=== PATIENT | female | born 1990 | race African-American/Black ===

== ENCOUNTER 2019-12-01 14:04 | Inpatient (IN) | payer MEDICARE ==
[~2019-12-01] VITALS: Ht 149.9 cm; Wt 111.1 kg
--- NOTE | ~2019-12-01 | OP ---
PATIENT NAME: MAYLIN TALBOT MEDICAL RECORD: [id number] :89 LOCATION:[id number] ADMISSION DATE:12/24/19 SURGEON: MARY PETERSON DO DATE OF OPERATION: 12/25/2019 PREOPERATIVE DIAGNOSIS: Term nonreassuring heart tracing. POSTOPERATIVE DIAGNOSIS: Term nonreassuring heart tracing. PRIMARY SURGEON: Mary Peterson DO ANESTHESIA: Spinal. PROCEDURE: Primary low transverse section via Pfannenstiel incision. FINDINGS: Female , weight 5 pounds 11 ounces, Apgars 7 and 9, delivered at 3:26 a.m. Nuchal cord times 1, meconium stained amniotic fluid. Normal appearing uterus, bilateral fallopian tubes, bilateral ovaries. Small uterine fibroid noted. SPECIMENS: Placenta and cord. ESTIMATED BLOOD LOSS: 800 mL. IV FLUIDS: 2700 cc. URINE OUTPUT: 200 cc clear urine. COMPLICATIONS: None. CONDITION: Stable. PROCEDURE IN DETAIL: The risks, benefits, alternatives and indications of the procedure were discussed with the patient who voiced understanding of the procedure and signed the consent. She was taken to the OR where spinal anesthesia was administered and found to be adequate. She was placed in the dorsal supine position with a leftward tilt. She was prepped and draped in normal sterile fashion. A Pfannenstiel skin incision was made with a scalpel and carried down to the underlying layer of the fascia with the Bovie. The fascia was incised at the midline and extended laterally. The inferior aspect of the fascial incision was grasped with Chago clamps and the rectus muscle was dissected off sharply. Attention was then turned to the superior aspect of the fascial incision. The rectus muscle was dissected off in a similar fashion. The rectus muscle was in the midline down to the level of the peritoneum. The peritoneum was identified and noted to be free of adherent bowel and entered bluntly. The peritoneum was further with gentle traction. The bladder blade was inserted. The uterus was incised in a transverse fashion of lower uterine segment. The incision was extended with cephalad caudad traction. The 's head was brought to the incision. Nuchal cord times 1 was reduced over the head prior to delivery of the body. Fetus delivered without difficulty. Mouth and nose were suctioned. Cord was clamped and cut. The infant was handed off to awaiting pediatricians. The placenta was manually removed. The uterus was exteriorized and a moist lap was used to assure complete removal of placenta membranes. The hysterotomy was closed with 0 Vicryl in a running locked fashion with double layer closure with OPERATIVE REPORT [id number] MAYLIN TALBOT good hemostasis. The uterus, tubes and ovaries were noted to be normal aside from small subserosal fibroids. The posterior cul-de-sac was irrigated with warm sterile water. The uterus, tubes and ovaries were returned back to the abdominal cavity and a moist laparotomy sponge was used to assure complete removal of blood clots and fluid from the abdominal cavity. The hysterotomy was reinspected and noted to be hemostatic. The rectus muscle was closed with 2-0 Monocryl in a running fashion with good hemostasis. The fascial incision was closed with 0 Vicryl in a running fashion with good hemostasis. The subcutaneous fat was closed with 2-0 plain in a running fashion with good hemostasis. The skin was closed in a subcuticular fashion with 3-0 Monocryl and Dermabond covering. All needle, lap, sponge, and instrument counts were correct times 2. The patient tolerated the procedure well and she was taken to the recovery room in stable condition. TRANSINT:[id number] Voice Confirmation ID: [id number] DOCUMENT ID: [id number] MARY PETERSON DO CC: [id number] DICTATION DATE: 12/25/19421 CAPACITY ANALYST: 12/25/19 050 ADM IN [facility] [address] [place] [address]
[2019-12-24 22:07] VITALS: BP 122/70; Ht 149.9 cm; Wt 111.1 kg
[2019-12-24 23:22] LABS: HEMATOCRIT 33.2 % (36.0-48.0); HEMOGLOBIN 10.4 g/dL (12-16); MCH 26.7 pg (26.0-34.0); MCHC 31.3 g/dL (31.0-37.0); MCV 85.1 fL (80.0-100.0); MEAN PLATELET VOLUME 11.6 fL (7.4-10.4); RBC 3.9 10x6/uL (4.00-5.40); RDW 15.4 % (11.5-14.5); WBC 7.2 10x3/uL (4.8-10.8)
--- NOTE | 2019-12-25 03:50 | NUR ---
BABY 0326 PLACENT[facility] 0327
--- NOTE | 2019-12-25 04:44 | NUR ---
FUNDUS IS FIRM, MIDLINE. 1U. RAND PAD IN PLACE. MODERATE RUBRA LOCHIA NOTED ON PAD. NO CLOTS PRESENT. WILL CONTINUE TO MONITOR.
[2019-12-25 05:17] VITALS: BP 134/70
[2019-12-25 05:47] VITALS: BP 117/65
--- NOTE | 2019-12-25 05:55 | NUR ---
at bs, resting quietly, arouses to name called, respirations even and unlabored, dsg d/i, no needs voiced at this time
[2019-12-25 06:02] VITALS: BP 122/71
[2019-12-25 07:17] VITALS: BP 120/60
--- NOTE | 2019-12-25 07:17 | NUR ---
pt rec'd in bed at this time. states that pain is a 7 at this time. dressig to abdoen cdi. fundus firm and u/1 with small lochia noted. con starr rn
--- NOTE | 2019-12-25 07:35 | NUR ---
PT MEDICATED WITH MORPHINE 4 MG IV FOR PAIN OF 7. L MAC CALIX
--- NOTE | 2019-12-25 08:20 | NUR ---
LAB HERE FOR 0500 LAB WORK. Jose Ramon CALIX RN
--- NOTE | 2019-12-25 08:30 | NUR ---
PT REC'D IN BED AT THIS TIME. STATES THAT PAIN IS STILL A 7. RAZO CATH EMPTIED AT THIS TIME. WILL CONTINUE TO ASSESS PAIN LEVELS. Jose Ramon CALIX RN
[2019-12-25 08:47] LABS: BASOPHILS 0.1 % (0-2); EOSINOPHILS 0.1 % (0-7); HEMATOCRIT 33.6 % (36.0-48.0); HEMOGLOBIN 10.1 g/dL (12-16); IMMATURE GRANULOCYTES 0.3 % (0-5); LYMPHOCYTES 10.9 % (15-50); MCH 26.2 pg (26.0-34.0); MCHC 30.1 g/dL (31.0-37.0); MEAN PLATELET VOLUME 11.2 fL (7.4-10.4); MONOCYTES 3.7 % (2-11); NEUTROPHILS 84.9 % (40-80); PLATELET COUNT 200 10x3/uL (130-400); RBC 3.86 10x6/uL (4.00-5.40); RDW 15.7 % (11.5-14.5)
--- NOTE | 2019-12-25 09:46 | NUR ---
PT MEDICATED WITH 1 MG OF DILAUDID FOR PAIN. Jose Ramon CALIX RN
--- NOTE | 2019-12-25 10:51 | NUR ---
PT MEDICATED WITH SCHEDULED TORADOL AT THIS TIME. PT RESTING INTERMITTENTLY. NO DISTRESS NOTED. Jose Ramon CALIX RN
--- NOTE | 2019-12-25 12:30 | NUR ---
PT SALINE LOCKED AT THIS TIME. STATES THAT PAIN IS A 4 AT THIS TIME. PT TOLERATING LIQUIDS AT THIS TIME. Jose Ramon CALIX RN
--- NOTE | 2019-12-25 13:45 | NUR ---
1330 RAZO CATH REMOVED AT THIS TIME AND PT UP TO BATHROOM. PT UP TO WALK IN THE HALLS AT THIS TIME. Jose Ramon CALIX RN
[2019-12-25 15:44] VITALS: BP 111/55
--- NOTE | 2019-12-25 15:49 | NUR ---
PT REC'D IN BED AT THIS TIME. REPORTS PAIN LEVEL OF 4/10. PT INTERMITTENTLY NAPPING. Jose Ramon CALIX RN
--- NOTE | 2019-12-25 16:45 | NUR ---
PT UP TO VOID AT THIS TIME. PT VOIDED 600 ML OF YELLOW URINE AT THIS TIME. PERICARE PERFORMED AT THIS TIME. Jose Ramon CALIX RN
--- NOTE | 2019-12-25 17:11 | NUR ---
PT ATTEMPTED TO AMBULATE. UNABLE DUE TO INCREASED PAIN. PT MEDICATED WITH TORADOL AND PERCOCET 10. WILL CONTINUE TO MONITOR. Jose Ramon CALIX RN
--- NOTE | 2019-12-25 18:35 | NUR ---
pt resting comfortably at this time. no distress noted. con starr rn
[2019-12-25 20:21] VITALS: BP 121/64
--- NOTE | 2019-12-25 20:24 | NUR ---
RESTING QUIETLY IN ROOM W/ SIG OTHER AT BEDSIDE. SEE SHIFT ASSESSMENT ENTRY. DSG D/I, DENIES NEEDS AT THIS TIME.
--- NOTE | 2019-12-25 20:45 | NUR ---
up to shower, bandage removed, incision w/a.
--- NOTE | 2019-12-25 20:58 | NUR ---
PT CALLED OUT WATER FILTRATION TECHNICIAN STEVEN FOR A PAIR OF PANTIES, PANTIES PROVIDED AND PT DENIES OTHER NEEDS. PTS MOTHER REMAINS AT BEDSIDE FOR SUPPORT. WILL CONTINUE TO MONITOR
--- NOTE | 2019-12-25 21:29 | NUR ---
up walking in moy pushing in oc, pt's mother at her side.
--- NOTE | 2019-12-25 22:56 | NUR ---
ADMINISTERED TORADOL PO PER MD ORDERS, NO OTHER NEEDS IDENTIFIED. PTS MOTHER REMAINS AT BEDSIDE FOR SUPPORT. WILL CONTINUE TO MONITOR
--- NOTE | 2019-12-25 23:37 | NUR ---
PATIENT RESTING QUIETLY WITH EYES CLOSED, RESPIRATIONS EVEN AND NON LABORED. BED REMAINS LOCKED IN LOW POSITION, CALL STEVEN AND TRAY TABLE IN REACH. WILL CONTINUE TO MONITOR
--- NOTE | 2019-12-26 01:45 | NUR ---
PATIENT SITTING UP IN BED FILLING OUT PAPERWORK FOR THE NURSERY. STATES THAT HER PAIN IS A 5/10 BUT THAT SHE DOESNT WANT ANY PAIN MEDICINE, SHE IS GOING BACK TO SLEEP AND WILL WAIT UNITL LATER IN THE MORNING. PT ENCOURAGED TO CALL FOR PAIN MEDICATION IF HER PAIN GETS ANY WORSE. PT VERBALIZES UNDERSTANDING. HERNANDEZ CONTINUE TO MONITOR.
--- NOTE | 2019-12-26 04:59 | NUR ---
PT CONTINUES TO BE SLEEPING, MOTHER REMAINS AT BEDSIDE FOR SUPPORT.
[2019-12-26 05:08] LABS: RAPID PLASMA REAGIN Non Reactive (Non Reactive)
[2019-12-26 06:33] LABS: BASOPHILS 0.1 % (0-2); EOSINOPHILS 0.4 % (0-7); HEMATOCRIT 30.6 % (36.0-48.0); HEMOGLOBIN 9.3 g/dL (12-16); IMMATURE GRANULOCYTES 0.5 % (0-5); LYMPHOCYTES 21.6 % (15-50); MCH 26.8 pg (26.0-34.0); MCHC 30.4 g/dL (31.0-37.0); MCV 88.2 fL (80.0-100.0); MEAN PLATELET VOLUME 10.9 fL (7.4-10.4); MONOCYTES 5.7 % (2-11); NEUTROPHILS 71.7 % (40-80); PLATELET COUNT 197 10x3/uL (130-400); RBC 3.47 10x6/uL (4.00-5.40); RDW 16.1 % (11.5-14.5); WBC 8.5 10x3/uL (4.8-10.8)
[2019-12-26 07:30] VITALS: BP 117/59
--- NOTE | 2019-12-26 07:38 | NUR ---
AROUSED FROM SLEEP. SHIFT ASSESSMENT COMPLETED. VISITOR X 1 ON COUCH, IN CRIB, RESP EVEN. REGULAR DIET SERVED. NO REQUESTS. SAYS SHE IS NOT HAVING ANY PAIN EXCEPT WHEN SHE STARTS TO MOVE 3/10 INCISIONAL. UP AD BHARATI. VOIDING, HAS NOT PASSED FLATUS. BOTTLEFEEDING INFANT O+ RUBELLA IMMUNE, NON-SMOKER. SIDERAILS UP X 2, CALL LIGHT IN REACH.
--- NOTE | 2019-12-26 08:57 | NUR ---
AMBULATING IN [place]VE[place], PUSHING IN CRIB WITH VISITOR. NO REQUESTS. TOLERATING WELL.
--- NOTE | 2019-12-26 09:37 | NUR ---
SITTING UP IN BED WITH INFANT. VISITOR X 1 IN ROOM. RECHECKED TEMP 98.1. NO REQUESTS. REMINDED TO DEEP BREATH AND COUGH AND USE INCENTIVE SPIROMETER. ALSO ENCOURAGED OOB AMBULATION MUCH TOLERATED. VERBALIZED UNDERSTANDING. SIDE RAILS UP X 2, CALL LIGHT IN REACH.
--- NOTE | 2019-12-26 11:28 | NUR ---
DR FINLEY VISITED PATIENT. SITTING UP IN BED ON PHONE. SCHEDULED TORADOL WAS GIVEN. 5/10 INTERMITTENT ABD CRAMPING. FRESH WATER AND SNACK PACK GIVEN. INFANT AND VISITOR IN ROOM. NO REQUESTS.
[2019-12-26 12:14] VITALS: BP 113/62
--- NOTE | 2019-12-26 12:15 | NUR ---
PERCOCET 5 MG 2 TABS GIVEN PO FOR RELIEF OF ABDOMINAL CRAMPING AND PAIN. 04/01. C/O LEFT PRETIBIAL SORENESS THAT JUST STARTED BUT RESOLVED BEFORE THIS RN LEFT ROOM. NO ERRYTHEMA OR INCREASE WARMTH, CALF NON-TENDER. PEDAL PULSE PRESENT. PT SAYS "MAYBE I JUST NEED TO GET UP AND MOVE." CONCURRED WITH PATIENT AND ENCOURAGED OOB AND TO SIT ON EDGE OF BED TO EAT LUNCH. TO LET RN KNOW IF PAIN RETURNS OR PAIN IN LE WHEN WALKING. VERBALIZED UNDERSTANDING. ALSO TO LET RN KNOW WHEN READY TO TAKE SHOWER. VISITOR AND IN ROOM. CALL LIGHT IN REACH. SIDE RAILS UP X 2.
--- NOTE | 2019-12-26 14:04 | NUR ---
LAYING IN BED. SAYS HER PAIN IS MUCH BETTER 3-4/10 ABDOMINAL INTERMITTENT PAIN. DENIES FURTHER LEG PAIN. SAYS SHE HAS AMBULATED IN ROOM AND SAT ON COUCH FOR AWHILE. VISITOR SLEEPING ON COUCH. IN CRIB. NO REQUESTS. SIDERAILS UP X 2, CALL LIGHT IN REACH.
--- NOTE | 2019-12-26 15:38 | NUR ---
AMBULATING IN HARVE[place]. TOLERATING WELL. NO REQUESTS. FOB IN ROOM WITH INFANT.
--- NOTE | 2019-12-26 18:16 | NUR ---
SITTING UP IN BED HOLDING . DENIES NEEDING ANYTHING FOR PAIN. PLANS TO TAKE A SHOWER SOON. ITEMS IN ROOM. REQUESTED SALINE LOCK REMOVAL. DC'D WITH TIP INTACT WITHOUT DIFFICULTY. SIDERAILS UP X 2, CALL LIGHT IN REACH. TO CALL IF NEEDING ANYTHING. FOB ON COUCH.
[2019-12-26 19:09] VITALS: BP 130/63
--- NOTE | 2019-12-26 19:09 | NUR ---
RN TO PT BEDSIDE FOR ASSESSMENT. PT COMPLAINS OF 4/10 PAIN TO ABDOMINAL INCISION AREA. FUNDUS IS FIRM, MIDLINE, 2 BELOW, SCANT RUBRA LOCHIA NOTED TO SITE. PT STATES ALL NEEDS CURRENTLY MET AT THIS TIME. BED IN LOWEST POSITION, SIDE RAILS UPX2, CALL LIGHT WITHIN REACH.
--- NOTE | 2019-12-26 20:36 | NUR ---
RN TO PT BEDSIDE, PT REQUESTING MEDICATION FOR GAS PAIN, SIMETHICONE ADMINISTERED TO PT PER MD ORDERS. PT STATES ALL OTHER NEEDS ARE MET AT THIS TIME.
--- NOTE | 2019-12-26 22:20 | NUR ---
PT REQUESTS ICE WATER, RN PROVIDED PT WITH ICE WATER.
--- NOTE | 2019-12-26 23:26 | NUR ---
RN TO PT BEDSIDE FOR ROUNDING, PT IN BED HOLDING BONDING, PT STATES HER GAS PAINS HAVE DISAPPEARED, AND THAT THE PT IS NOW PASSING FLATUENCE. PT STATES HER PAIN IS 4/10 AND PT WAS PROVIDED HER SCHEDULED TORADOL 10MG PO PER MD ORDERS. PT STATES ALL OTHER NEEDS ARE CURRENTLY MET.
--- NOTE | 2019-12-27 04:40 | NUR ---
RN TO PT BEDSIDE FO RROUNDING, PT STATES PAIN IS 5/10. FUNDUS FIRM, MIDLINE, 2 BELOW, SCANT RUBRA LOCHIA NOTED, PT STATES SHE WOULD LIKE SOME PAIN MEDS AT THIS TIME. BED IN LOWEST POSITION, CALL LIGHT IN REACH
[2019-12-27 04:43] VITALS: BP 115/78
--- NOTE | 2019-12-27 07:00 | NUR ---
ASSUMED CARE OF THIS PATIENT. CURRENTLY SLEEPING, EYES CLOSED, RESP EVEN. FOB AND INFANT IN ROOM. SIDERAILS UP X 2, WILL COMPLETE SHIFT ASSESSMENT WHEN AWAKE. ANTICIPATE DC HOME TODAY. PER IMMUNIZATIONS RECORDS, NEXT TDAP IS DUE IN 2030.
[2019-12-27 08:30] VITALS: BP 121/61
--- NOTE | 2019-12-27 08:40 | NUR ---
FINISHED BREAKFAST. SHIFT ASSESSMENT COMPLETED. DENIES NEEDING ANYTHING. DISCUSSED PAIN MANAGEMENT. FOB AND IN ROOM. ANTICIPATE DC HOME TODAY. TO CALL IF ANYTHING IS NEEDED. SIDERAILS UP X 2, CALL LIGHT IN REACH.
--- NOTE | 2019-12-27 09:44 | NUR ---
TALKING TELEPHONE. FOB AND IN ROOM. DENIES NEEDING ANYTHING AT THIS TIME.
--- NOTE | 2019-12-27 10:49 | NUR ---
DR FINLEY VISITED. ORDERS RECEIVED TO DC HOME WITH .
[2019-12-27] MEDS ORDERED: PERCOCET 7.5/321 TAB PO (10:57)
[2019-12-27] MEDS ORDERED: IBUPROFEN800 MG PO (10:58)
--- NOTE | 2019-12-27 12:45 | NUR ---
DC'D HOME VIA WHEELCHAIR AFTER PROVIDING VERBAL AND WRITTEN DC INSTRUCTIONS TO INCLUDE POST OP CARE, PP DEPRESSION, S&S INFECTION, DANGER SIGNS, CORONO 19, MEDICATION ADMINISTRATION, MEDICATION ADMINISTRATION- TO START MOTRIN 800 MG Q 8 HOURS X 2 DAYS. BREASTCARE AND BOTTLE FEEDING, F/U. VERBALIZED UNDERSTANDING. ALL BELONGINGS REMOVED FROM ROOM. FOB DRIVING, IN CARSEAT IN CAR.
== END 2019-12-27 12:45 | disposition home or self-care (01) | DRG 788 ==
LOC: D.LD 12-24 21:30 → D.SDCHOLD 12-25 14:06 → D.LD 12-25 14:06
PROVIDERS: Student in an Organized Health Care Education/Training Program; ADMIT Obstetrics & Gynecology; ATTEND Obstetrics & Gynecology
PROC: 10D00Z1 Extraction of Products of Conception, Low, Open Approach (ICD-10-PCS; principal; 2019-12-25 03:00)
DX: O76 Abnormality in fetal heart rate and rhythm complicating labor and delivery (principal); Z3A.40 40 weeks gestation of pregnancy; Z37.0 Single live birth